=== PATIENT | male | born 1945 | race Caucasian/White ===

== ENCOUNTER 2018-11-26 12:46 | Emergency (ER) | payer OTHER ==
--- NOTE | 2018-11-26 12:48 | PDOC ---
History of Present Illness - General Chief Complaint: Injury Stated Complaint: RIGHT SHOULDER PAIN S/P FALL Time Seen by Provider: 11/26/18 12:48 - History of Present Illness Initial Comments: 11/26/18 13:06 Chief complaint: Pain right shoulder History of present illness: Immediately [employer], the patient was on a ladder, 4 steps up, the latter to obtain he felt onto his right shoulder. He has pain in the shoulder and is unable to abduct the arm due to pain. There is no distal numbness tingling weakness or limited motion of the forearm wrist or hand. He denies any other injuries including pain or injuries to the head neck chest abdomen pelvis spine or other extremities. He did not strike his head and there was no loss of consciousness. Review of systems: As noted above. Otherwise systems completely reviewed and negative Past medical history: Patient has otherwise healthy, takes no medication, only surgery was a hernia repair about 10 years ago Social/family history reviewed and noncontributory Physical exam: Alert and oriented well-developed well-nourished no acute distress cheerful and cooperative Afebrile, vital signs normal Head atraumatic. PERRLA, fundi benign, ENT clear Neck without tenderness or deformity, full range of motion without pain Chest clear with full breath sounds bilaterally. No chest wall or rib cage tenderness or deformity CV regular without murmur rub or gallop pulses full and symmetric Abdomen soft nontender without mass or organomegaly Neurological C2 to 12 intact. Strength full and symmetric. No focal sensory or motor deficits, other than inability to abduct his right arm because of pain. Gait stable and unimpaired Extremities: There is a deformity of the right shoulder suggesting an before meals separation, with an elevated clavicle. The shoulder does not appear to be dislocated. Pulses are full. No distal sensory or motor deficits Impression: Fractured clavicle or shoulder separation. Plan: X-ray and further orthopedic management depending on results. 11/30/18 09:08 Past History - Past Medical History Allergies/Adverse Reactions: Allergies Allergy/AdvReac Type Severity Reaction Status Date / Time No Known Allergies Allergy Verified 11/26/18 12:48 Home Medications: Ambulatory Orders Ascorbic Acid [Vitamin C] 1,000 mg PO DAILY tablet 10/05/16 Cholecalciferol (Vitamin D3) [Vitamin D3] 5,000 unit PO DAILY capsule 10/05/16 Multivitamin [Daily Vitamin Formula] 1 each PO DAILY tablet 10/05/16 Oxycodone HCl/Acetaminophen [Percocet 10-325 mg Tablet] 1 each PO QID PRN #10 tablet MDD 4 11/26/18 Medical Decision Making - Medical Decision Making 11/26/18 13:59 X-ray shows A-C separation. No obvious fracture. Sling. Analgesic. Early ROM 11/26/18 14:01 Appt with Ortho tomorrow Dr. Crystal 11/30/18 09:09 Fully ambulatory, in no severe pain at discharge to follow-up as scheduled tomorrow with orthopedist. Good pulses, no sensory or motor deficits. *DC/Admit/Observation/Transfer Diagnosis at time of Disposition: Shoulder separation - Discharge Dispostion Disposition: HOME Condition at time of disposition: Improved Decision to Admit order: No - Prescriptions Prescriptions: Oxycodone HCl/Acetaminophen [Percocet 10-325 mg Tablet] 1 each PO QID PRN #10 tablet MDD 4 PRN Reason: Severe Pain - Referrals Referrals: Jl Crystal MD [Staff Physician] - 24 hours - Patient Instructions Printed Discharge Instructions: DI for AC Joint Separation Additional Instructions: Ice. Advil. Sling. See Dr. Crystal tomorroe as scheduled - Post Discharge Activity
[2018-11-26 13:00] VITALS: BP 131/95; PULSE 90; TEMP 98; BMI 25.1
== END 2018-11-26 14:15 | disposition home or self-care (01) ==
LOC: FER 12:46
DX: S43.004A Unspecified dislocation of right shoulder joint, initial encounter (principal); W11.XXXA Fall on and from ladder, initial encounter; Y93.89 Activity, other specified; Y92.89 Other specified places as the place of occurrence of the external cause
CPT/HCPCS: 73030-TC-RT-FY; 99283-25